=== PATIENT | female | born 2000 | race Caucasian/White ===

== ENCOUNTER 2020-10-04 21:39 | Inpatient (IN) | payer MEDICAID, SELFPAY ==
[2020-10-04 21:40] VITALS: BP 131/74; PULSE 91; RESP 16; TEMP 36.4; O2SAT 95; BMI 20.9
--- NOTE | 2020-10-04 22:08 | EDS_ITS ---
HPI History of Present Illness Chief Complaint: Substance Abuse Detail of Chief Complaint: Detox from fentanyl third visit Informant: patient Onset/Context/Timing Onset: Month(s) (Patient states she has been smoking fentanyl for 1 month) Context: Sudden Onset Timing: Continuous Quality: Illicit drug use Location: Not applicable Current Severity: Moderate Maximum Severity: Moderate Worsened by: Nothing Relieved by: Nothing Associated Symptoms Associated Symptoms: Positive for tremor, no and unknown; Negative for vomiting*, diarrhea*, fever*, rash*, seizure, palpatations, change in mental status, sex for drugs*, suicidal ideation, homicidal ideation and *HIV Risk Factors:Consider testing if last test > 6 months Prehospital Treatment: Naloxone, Glucose, Oxygen, BVM and CPR Narrative Narrative: Patient is a 20-year-old female whose last normal menstrual period was 2 to 3 weeks ago who presents for detox. She has a prior history of IV drug use. She denies history of SBE, heart murmur or being immune suppressed. She states she is hepatitis C positive. She states her HIV test was negative. She has been smoking and fentanyl for the past month. She is never been in detox program. She states she would like to stop using fentanyl. She denies fever, chills night sweats. Denies headache. She denies double vision, blurred vision loss of vision or change in vision. She denies trouble with speech or swallowing. She denies chest pain. Denies shortness of breath. She denies nausea, vomiting diarrhea. She denies myalgias or arthralgias. She has lesions on her extremities for numerous causes. She states she is not injecting. Prior similar symptoms: No Recent Illness/Hospitalization: No PFSH PFSH no medical history Home Medications NK 10/04/20 [History Last Taken Unknown] Allergy/AdvReac Type Severity Reaction Status Date / Time No Known Allergies Allergy Verified 10/04/20 21:42 other no surgical history Social History (Updated 10/04/20 @ 22:[address] Nickolas Mar MD) household members: significant other housing: apartment Smoking Status: Current every day smoker tobacco type: cigarettes alcohol intake: current alcohol intake frequency: other substance use type: opiates ROS ROS ED Constitutional Constitutional ED: Reports sweats; Denies chills, fever(s), subjective or weight loss Eyes Eyes: Denies blurry vision, change in vision or diplopia ENT ENT ED: Denies ear pain, rhinorrhea or sore throat Cardiovascular Cardiovascular: Denies chest pain, orthopnea, palpitations or racing heartbeat Respiratory/Chest Respiratory/Chest: Denies cough, dyspnea, dyspnea on exertion or orthopnea Gastrointestinal Gastrointestinal: Reports nausea; Denies abdominal pain, diarrhea or vomiting Genitourinary Genitourinary ED: Denies dysuria or urinary frequency Musculoskeletal Musculoskeletal: Denies arthralgias, back pain, myalgias or neck pain Integumentary Reports rash; Denies abscess or Abrasions Neurologic Neurologic: Denies headache(s) or weakness Psychiatric Psychiatric: Denies anxiety or depression Hematologic/Lymphatic Hematologic/Lymphatic: Denies easy bleeding or easy bruising EXAM Physical Exam Const Vital Signs: 10/04/20 21:40 Temperature 97.6 F L Temperature Source Temporal Pulse Rate 91 Respiratory Rate 16 Blood Pressure 131/74 H Blood Pressure Mean 93 Pulse Ox 95 Oxygen Delivery Method Room Air Positive well nourished and well developed General Appearance ED: well developed and NAD HEENT Reports TM's clear and moist mucous membranes HEENT Narrative: Head is normocephalic. Ears are normal. Nares patent. Posterior pharynx no erythema or exudate. atraumatic Tympanic Membrane ED: Yes TM's clear Eyes PERRL and EOMs intact bilaterally Eyes Narrative: There is no nystagmus. General Eye ED: Negative for pale conjunctiva or scleral icterus Neck no lymphadenopathy, supple and no JVD Lymph Lymphatic: no lymphadenopathy noted Chest Wall inspection of chest normal Resp normal respiratory effort and clear to auscultation bilaterally Cardio regular rate, regular rhythm, S1 normal heart sound, S2 normal heart sound and no murmurs GI soft to palpation, non-tender, non-distended and no masses Back/Spine no CVA tenderness Cervical Spine: Negative for cervical spine tenderness Thoracic Spine / Upper Back: Negative for thoracic spinal tenderness Lumbar Spine / Lower Back: Negative for lumbar spinal tenderness Extremity General Extremety ED: Negative for edema or tenderness General Extremity: Negative for edema Neuro oriented x3 and CN's II-XII intact bilaterally Neuro Narrative: There is no dysmetria. There is 3 beats of clonus at the ankles bilaterally Edie Coma Scale: document GCS findings Spontaneous Obeys Commands Oriented 15 Sensorium / Orientation: alert Speech: speech normal Gait (Neuro): normal gait Motor Exam: strength 5/5 throughout Psych mental status grossly normal and thought process normal Skin Skin Narrative: Patient has areas that are concerning for diamond picker syndrome. She denies. MDM MDM MDM Narrative Medical decision making narrative: Patient presents for opiate dependency and detox. She is never been in a detox program. ER addiction order set was initiated. Patient's case was discussed with hospitalist. She will be admitted to the hospital for detox. She understands she cannot smoke. Radiography Diagnostic Testing: Labs to be followed by hospitalist. Rhythm Strip Rhythm Strip: Sinus Rhythm Rate: 88 Ectopy: None Discharge Plan Triage Chief Complaint: Substance Abuse ED Provider: Nickolas Mar Dx/Rx/DC Orders Clinical Impression: Fentanyl use disorder, moderate, dependence Prescriptions: No Action NK RF: 0 Disposition Disposition: Acute Care Hospital [facility]
--- NOTE | 2020-10-04 22:42 | CM.ED ---
SW Note SW was advised by the hospitalist, Gloria Chi, that patient and her significant other are being admitted for fentanyl use. [facility] will be going [facility]. Patient and Thor Rashid have 1 month old chid who is currently being cared for by grandmother. She wanted manager social to be aware. Plan: Send daily report email Christen Rubi
--- NOTE | 2020-10-04 22:59 | ED.RN ---
PATIENT NAVIGATOR CONTACTED AND VERBALIZED THAT HERSELF OR ANOTHER STAFF MEMBER WILL BE IN TO SEE PT IN THE MORNING.
[2020-10-04 23:01] LABS: Absolute Lymphocyte Count 3.11 X10^3/uL (0.83-4.51); Absolute Neutrophil Count 5.2 X10^3/uL (2.0-7.7); Basophil# 0.04 X10^3/uL; Basophil% 0.4 % (0-1); Eosinophil# 0.33 X10^3/uL; Eosinophils% 3.6 % (0-5); Hematocrit 37.8 % (37-47); Hemoglobin 12.2 g/dL (12.0-15.0); Lymphocyte # 3.11 X10^3/ul (0.83-4.51); Lymphocyte % 33.5 % (19-41); Mean Corp Hgb Conc 32.3 g/dL (32-36); Mean Corpuscular Hgb 30.1 pg (27.0-32.0); Mean Corpuscular Volume 93.3 fL (81-99); Mean Platelet Vol. 9.6 fl (6.2-12.0); Monocyte# 0.62 X10^3/uL; Monocyte% 6.7 % (0-10); NRBC Flagged by Analyzer 0 % (0-5); Neutrophil # 5.15 X10^3/uL (2.7-7.7); Neutrophil % 55.6 % (47-70); Platelet Count 298 K/mm3 (150-450); RBC Distribution Width CV 15.8 % (11.6-14.6); RBC Distribution Width SD 54.7 fl (35.1-43.9); Red Blood Count 4.05 M/mm3 (4.2-5.4); White Blood Count 9.3 K/mm3 (4.4-11.0)
--- NOTE | 2020-10-04 23:07 | HP.PCM.HOS_ITS ---
HPI - General General Date of Admission: 10/04/20 Date of Service: 10/04/20 Chief Complaint: Acute Opiate Withdrawal HPI Narrative The patient is a 20 y/o F w/ PMHx: Tobacco use, recently diagnosed Hepatitis C ~ 1 month prior, Hx prior IVDA currently smoking Fentanyl, prior history of methamphetamine usage, recently delivered a baby girl ~ 1 month prior who presents to the [facility] ED on 10/04/20 w/ noted acute opiate withdrawal onset starti ng on day of ED presentation following last dose at ~ noon with abdominal cramping, generalized body aches, rhinorrhea, fatigue, restless leg, sweating. Patient interested in attaining clean status. She and her boyfriend presented in an attempt to become clean given the recent of their daughter. Their daughter is currently with the grandmother. The boyfriend was recently admitted to withdrawal treatment but she herself had not gone at that time and he started using again but was willing to come in tonight to start the process together. Work-up in the ED included T 97.6, heart rate 91, BP 131/74, respiratory rate 16, 95% on room air, CBC with WC 9.3, hemoglobin 12.2, platelet 298 without marked shift, CMP not marked appearing, urine testing negative, UDS negative, ethyl alcohol level less than 3. [facility] Medical History (Updated 10/05/20 @ 00:[address] Gloria Chi MD) Hepatitis C Substance abuse Tobacco abuse Home Medications NK 10/04/20 [History Last Taken Unknown] Allergy/AdvReac Type Severity Reaction Status Date / Time No Known Allergies Allergy Verified 10/04/20 21:42 no significant family history (Patient denies any marked maternal/paternal family history including HD, DM, CA.) no surgical history Social History (Updated 10/05/20 @ 00:[address] Gloria Chi MD) household members: significant other housing: apartment Smoking Status: Current every day smoker tobacco type: cigarettes Smoking packs per day: 0.5 Smoking cigarettes per day: 10.0 alcohol intake: current alcohol intake frequency: a few times a week substance use type: opiates and other details: Fentanyl, currently smoking. ROS ROS Narrative Admission Review of Systems: CONSTITUTIONAL: No weight loss, fever, chills, + weakness or fatigue. HEENT: Eyes: No visual loss, blurred vision, double vision or yellow sclerae. Ears, Nose, Throat: No hearing loss, sneezing, congestion, runny nose or sore throat. SKIN: No rash or itching, lesions, wounds. CARDIOVASCULAR: No chest pain, chest pressure or chest discomfort, palpitations, edema, orthopnea, syncopal events. RESPIRATORY: No shortness of breath, cough or sputum, wheezing, hemoptysis. GASTROINTESTINAL: + anorexia, nausea without vomiting, abdominal pain, No melena, BRBPR. GENITOURINARY: No dysuria, frequency, urgency or retention. NEUROLOGICAL: No headache, dizziness, syncope, paralysis, ataxia, numbness or tingling in the extremities, focal weakness, change in bowel or bladder control, seizure. MUSCULOSKELETAL: + muscle, back pain, joint pain or stiffness. HEMATOLOGIC: No anemia, bleeding or bruising. LYMPHATICS: No enlarged nodes. No history of splenectomy. PSYCHIATRIC: No history of depression or anxiety. ENDOCRINOLOGIC: + reports of sweating, cold or heat intolerance. No polyuria or polydipsia. ALLERGIES: No history of asthma, hives, eczema or rhinitis. Vital Signs Vital Signs Vital Signs: 10/04/20 21:40 Temperature 97.6 F L Temperature Source Temporal Pulse Rate 91 Respiratory Rate 16 Blood Pressure 131/74 H Blood Pressure Mean 93 Pulse Ox 95 Oxygen Delivery Method Room Air Weight Weight: 130 lb Body Mass Index (BMI) 20.9 Physical Exam Narrative Physical Examination: General: Awake, alert, oriented x 3 and cooperative, seated upright in the ED bed, restless, anxious. Skin: Normal color, normal turgor, no icterus, no cyanosis except picked regions . HEENT: AT/NC, EOMI, PERRLA, mildly dry MM, no carotid bruits or JVD noted. Lungs: Mildly diminished, greater bases, end expiratory wheezing occasionally, no acute evidence of any respiratory distress. Heart: Regular rate and rhythm; no gallop, rub audible. Abdomen: Soft, NTTP, ND, normal BS, no HSM. Extremities: No cyanosis, clubbing, or edema. Neurological: Patient awake, alert, oriented as noted, cognitive function intact; pupils equally reactive to light and accommodation, cranial nerves II- XII grossly normal, moving all 4 extremities, no focal deficits, strength preserved, extremely restless, moving frequently. Psychiatric: Affect appears restless, anxious, no acute evidence of depressive feelings. Results Lab / Micro Data Result Diagrams: 10/04/20 22:30 10/04/20 22:30 Labs: Laboratory Results - last 24 hr 10/04/20 22:30: WBC 9.3, RBC 4.05 L, Hgb 12.2, Hct 37.8, MCV 93.3, MCH 30.1, MCHC 32.3, RDW Std Deviation 54.7 H, RDW Coeff of Lindsay 15.8 H, Plt Count 298, MPV 9.6, Immature Gran % (Auto) 0.200, Neut % (Auto) 55.6, Lymph % (Auto) 33.5, Sac % (Auto) 6.7, Eos % (Auto) 3.6, Baso % (Auto) 0.4, Absolute Neuts (auto) 5.2, Absolute Lymphs (auto) 3.11, Nucleated RBC % 0 10/04/20 22:30: Ur Drug Screen Comment Rhythm Strip Rhythm Strip: Sinus Rhythm Rate: 88 Ectopy: None Assessment & Plan Assessment/Plan (1) Opiate withdrawal: PLAN: The patient is a 20 y/o F w/ PMHx: Tobacco use, recently diagnosed Hepatitis C ~ 1 month prior, Hx prior IVDA currently smoking Fentanyl, prior history of methamphetamine usage, recently delivered a baby girl ~ 1 month prior who presents to the [facility] ED on 10/04/20 w/ noted acute opiate withdrawal onset starting on day of ED presentation following last dose at ~ noon with abdominal cramping, generalized body aches, rhinorrhea, fatigue, restless leg, sweating. 1. Acute Opiate Withdrawal: Will admit to [facility], routine labs including CBC, CMP, urine for drug screen obtained in the ED, confirmed negative testing, will initiate and continue on protocol with tapering course of Subutex, as needed tylenol, ibuprofen, bowel regimen, gabapentin, Bentyl, Vistaril, methocarbamol, clonidine, PRN nightly trazodone for insomnia, IV fluids, IV antiemetics. We will consult case management for transition to next level of rehabilitation care. Discussed patient presentation with social work in the emergency room as well. 2. Polysubstance Abuse, IVDA Hx, History of Hepatitis C, Chronic: Patient currently not candidate for hep C treatment currently as needs to be clean, sober x 6 months, documented attendance NA or AA meetings, counseling and ongoing negative drug screens. Per discussion with patient will obtain HIV, hepatitis panel to assess for co-infection pending. 3. Recent spontaneous vaginal delivery: Patient with recent delivery of her geeta allie, 1-month-old, currently with the grandmother, discussed case and concerns with social work in the emergency room. 4. Tobacco Abuse: Encouraged cessation, inpatient consultation per RT, NR if desired. 5. DVT prophylaxis: Low risk, encourage ambulation. Charges/Coding Visit Charges Inpatient E&M: 47091 Init Hosp L2
[2020-10-04 23:12] LABS: Internal QC Validated? YES +Cl - CLEAR BKGD; Pregnancy, Serum, hCG Quali. NEGATIVE Negative
[2020-10-04 23:14] LABS: Alcohol, Blood (Medical)-Serum < 3.0 mg/dL
[2020-10-04 23:17] LABS: AST(SGOT) 13 U/L (15-37); Alanine Aminotransfer ALT/SGPT 17 U/L (13-56); Albumin, Serum 3.3 g/dL (3.2-5.0); Alkaline Phosphatase 60 U/L (45-117); Anion Gap 4 (5-15); BUN 10 mg/dL (7-18); BUN/Creat Ratio 11.5 RATIO (10-20); Calcium,Total 8.8 mg/dL (8.5-10.1); Chloride 109 mmol/L (98-107); Creatinine, Serum 0.87 mg/dL (0.55-1.02); EST Glomerular Filtration Rate 87 mL/min (>60); Est Glom Filt Rate - Afr Amer 106 mL/min (>60); Estimated Creatinine Clearance 95.22 ml/min; Globulin 3.3 g/dL (2.2-4.2); Glucose 82 mg/dL (74-106); Potassium 3.6 mmol/L (3.5-5.1); Protein, Total 6.6 g/dL (6.4-8.2); Sodium Level 141 mmol/L (136-145)
[2020-10-04 23:19] LABS: Amphetamine Urine VISTA NEGATIVE (<1000 ng/mL); Barbiturate Urine VISTA NEGATIVE (< 200 ng/mL); Benzodiazepine Urine VISTA NEGATIVE (< 200 ng/mL); Cocaine Urine VISTA NEGATIVE (< 300 ng/mL); Ecstacy Urine VISTA NEGATIVE (< 500 ng/mL); Methadone Urine VISTA NEGATIVE (< 300 ng/mL); PCP Urine VISTA NEGATIVE (< 25 ng/mL); THC Urine VISTA NEGATIVE (< 50 ng/mL); Vista UDS pH Range 5
[2020-10-04 23:48] VITALS: BMI 23.7
[2020-10-05] VITALS (8 sets, daily range): BP systolic 99–120; BP diastolic 49–73; PULSE 68–82; RESP 16–18; TEMP 36.2–37.2; O2SAT 95–99
[2020-10-05] MEDS: Buprenorphine HCl 2 MG TAB.SUBL SL ×3 (00:14→16:25)
[2020-10-05] MEDS: Lactated Ringers 1,000 ML 125 ML IV (00:15)
[2020-10-05] MEDS: Dicyclomine 10 MG Capsule 20 MG PO (00:27)
[2020-10-05] MEDS: 0.9% Saline Lock 10 ML Syringe IV (00:27)
[2020-10-05] MEDS: Gabapentin 300 MG Capsule PO (00:27)
[2020-10-05] MEDS: traZODone 100 MG Tablet PO (00:27)
[2020-10-05] MEDS: Methocarbamol 750 MG Tablet 1500 MG PO (00:27)
[2020-10-05 01:34] LABS: HIV - WCH Non-Reactive (Nonreactive)
--- NOTE | 2020-10-05 10:19 | PN.HOSP_ITS ---
Subjective Subjective Patient states she is having some mild loose stool, intermittent diaphoresis, body aches/chills, and nausea. She has no current issues or request at this time. Patient states that her use recently has been smoking opiates but she has injected in the past. Objective Data Objective Data Vital Signs: Vital Signs Temp Pulse Resp BP Pulse Ox 97.2 F L 70 18 99/49 L 96 10/05/20 07:55 10/05/20 07:55 10/05/20 07:55 10/05/20 07:55 10/05/20 08:10 Oxygen Delivery Method Room Air Weight: 66.7 kg Body Mass Index (BMI) 23.7 Intake & Output: Intake and Output for Last 24 Hours 10/03/20 10/04/20 10/05/20 23:59 23:59 23:59 Intake Total 1240 / 1240 Balance 1240 / 1240 Lab / Micro Data Result Diagrams: 10/04/20 22:30 10/04/20 22:30 Labs: Laboratory Results - last 24 hr 10/04/20 22:30: WBC 9.3, RBC 4.05 L, Hgb 12.2, Hct 37.8, MCV 93.3, MCH 30.1, MCHC 32.3, RDW Std Deviation 54.7 H, RDW Coeff of Lindsay 15.8 H, Plt Count 298, MPV 9.6, Immature Gran % (Auto) 0.200, Neut % (Auto) 55.6, Lymph % (Auto) 33.5, Randolph % (Auto) 6.7, Eos % (Auto) 3.6, Baso % (Auto) 0.4, Absolute Neuts (auto) 5.2, Absolute Lymphs (auto) 3.11, Nucleated RBC % 0 10/04/20 22:30: Sodium 141, Potassium 3.6, Chloride 109 H, Carbon Dioxide 28.0, Anion Gap 4 L, BUN 10, Creatinine 0.87, Estim Creat Clear Calc 95.22, Est GFR (MDRD) Af Amer 106, Est GFR (MDRD) Non-Af 87, BUN/Creatinine Ratio 11.5, Glucose 82, Calcium 8.8, Total Bilirubin 0.60, AST 13 L, ALT 17, Alkaline Phosphatase 60, Total Protein 6.6, Albumin 3.3, Globulin 3.3, Albumin/Globulin Ratio 1.0 10/04/20 22:30: Ethyl Alcohol < 3.0 10/04/20 22:30: Urine Opiates Screen NEGATIVE, Urine Methadone Screen NEGATIVE, Ur Barbiturates Screen NEGATIVE, Ur Phencyclidine Scrn NEGATIVE, Ur Amphetamines Screen NEGATIVE, U Methamphetamin-MDMA NEGATIVE, U Benzodiazepines Scrn NEGATIVE, Urine Cocaine Screen NEGATIVE, U Cannabinoids Screen NEGATIVE, Ur Drug Screen Comment 10/04/20 22:30: Serum , Qual NEGATIVE 10/04/20 22:30: HIV 1&2 Antibody Non-Reactive Micro: Microbiology 10/04/20 22:33 Nasal Secretion SARS-CoV-2 Antigen (Rapid) - Final Rhythm Strip Rhythm Strip: Sinus Rhythm Rate: 88 Ectopy: None Physical Exam Const alert, oriented x3 and no apparent distress Constitutional Narrative: Young white female lying in bed, slightly diaphoretic but no tremor and appears calm, nontoxic-appearing Exam Limitations: no limitations HEENT head/scalp atraumatic Head and Scalp: normocephalic Resp normal respiratory effort, no retractions, no use of accessory muscles and clear to auscultation bilaterally Auscultation: Negative for crackles, rales, rhonchi or wheezes Cardio regular rate, regular rhythm, S1 normal heart sound, S2 normal heart sound, no murmurs, no rub, no gallops, no clicks and no JVD GI normal to inspection, nondistended, normoactive bowel sounds, soft to palpation, non-tender and non-distended Extremity no clubbing, cyanosis or edema Peripheral Pulses: Yes pulses 2+ throughout Skin no rashes or lesions noted, no wounds, skin turgor normal, no jaundice, no petechiae and no mottling Neuro oriented x3 and moves all extremities Sensorium / Orientation: awake and alert Psych Psych Narrative: Affect is slightly flat but patient is appropriately interactive Assessment & Plan Assessment/Plan (1) Opiate withdrawal: (2) Fentanyl use disorder, moderate, dependence: PLAN: Acute opiate withdrawal -Continue buprenorphine taper -Continue supportive medications -180 to evaluate the patient today to put together treatment plan Polysubstance abuse -See above -Has history of IVDU -HIV was negative on admission -Patient was recently diagnosed with chronic hepatitis C -Patient has had periods of sobriety in the past Chronic hepatitis C -will need to remain clean for 6 months then may pursue treatment Recent spontaneous vaginal delivery -Baby is with patient's mother - is 1-month-old -Social work is consulted Tobacco abuse -Recommend cessation Nicotine patch if desired DVT prophylaxis -Early ambulation protocol -Patient is low risk CODE STATUS -Full code Charges/Coding Visit Charges Inpatient E&M: 28983 Subs Hosp L2
--- NOTE | 2020-10-05 11:03 | ADDICTION ---
TW met with pt to complete ASAM, AUDIT, DUDIT, MSE, and fill out JED. Pt was dismissive and unwilling to elaborate with TW. Pt was willing to sign JED for [facility] in [place] for Vivitrol appointment upon release. PT's first pre-MAT appt is set up for 10/08/2020 at 1PM in [place] [place], with the second appt for the administration of Vivitrol set up for 10/09/20 at 1:30PM in [facility]. Pt denies any further need for transportation. Pt will discharge to home with these f/u appointments.
--- NOTE | 2020-10-05 12:22 | CASEMGMT ---
SW met w/pt in room, as pt is self pay. SW provided resources to pt including a Medicaid application, a list of resources in [facility], prescription assistance programs, and the hospital financial assist form. Pt states that she has already applied for Medicaid. SW let pt know when she gets the bill from the hospital to call and give them the Medicaid information, to see if Medicaid can be billed for this hospitalization. Pt states understanding. No further needs identified at this time. TIEN Casanova
--- NOTE | 2020-10-05 14:30 | CASEMGMT ---
Social Work Note AMY reviewed chart. Pt with recent of daughter, 1 month old, currently at grandmother's house. SW in to speak with pt. SW introduced self and role at [facility]. Pt confirms that she gave about a month ago to a girl named Jane Rashid. Pt confirms that Jane is currently at pt's mom's house (Miracle Granda). Pt states her was not planned. Pt states she lives with her significant other, Thor (father of baby) and with Jane. Pt states she doesn't work but Thor works. Pt states her was normal and her daughter Jane has all basic needs met. Pt states she started using Fentanyl about a month ago, confirms around the time her baby was born. Pt states she never uses in front of Jane and neither does Thor. Pt states she uses Fentanyl about 1x a day and time of the day just depends. Pt states when she uses she will drop her baby off at her mother's house. Pt states she is never high around her daughter. Pt also states Thor never uses around Jane and he is never high around the baby either. Pt states her mother, Miracle, is good sober support. Pt states Miracle has her baby as pt is at [facility] for detox program. Pt states Jane is her second child but she doesn't have custody of her first child. Pt states she does have an active CPS case with [facility] and her caseworkers are Marisel Ziegler and Chuckie Denis. Pt gave this worker permission to call [facility] CPS and speak with Marisel or Chuckie to update them on pt's admission to [facility], the reason why pt is at [facility], and the discharge plan for pt. Pt signed Release of Information (JED) for [facility] CPS. JED placed on pt's chart. SW placed a call to [facility] CPS and spoke with Marisel. Marisel states pt had a safety plan from home and both her and Chuckie are aware pt is at [facility] for detox and aware of pt's discharge plan ([address] [place] [address] in [place]). Marisel states she is pt's peer business support specialist and and Chuckie are apart of the [facility] program where a CPS [employer] gets partnered with a peer support person. Marisel states she will update pt's layer out Chuckie. SW also called pt's CPS layer out Chuckie and she is also aware that pt is at [facility] for detox and of pt's discharge plan. Lianne Childress CRITICAL CARE UNIT NURSE, MANAGER PEST
--- NOTE | 2020-10-05 22:47 | CPS ---
patient requeted prn treatment due to sob.
[2020-10-06] MEDS: Buprenorphine HCl 2 MG TAB.SUBL SL ×3 (00:11→16:30)
--- NOTE | 2020-10-06 00:58 | NURSING ---
This RN reviewed CONTROL CABINET ASSEMBLER's charting, agree with findings.
[2020-10-06 07:20] VITALS: O2SAT 93
[2020-10-06 08:14] VITALS: BP 118/72; PULSE 87; RESP 18; TEMP 36.9; O2SAT 95
--- NOTE | 2020-10-06 11:01 | PN.HOSP_ITS ---
Subjective Subjective No issues overnight. Patient states she is feeling better today. She completes her last dose of Subutex early on the a.m. of 10/08/2020. She is scheduled for outpatient [facility] on Thursday at 11 AM. Objective Data Objective Data Vital Signs: Vital Signs Temp Pulse Resp BP Pulse Ox 98.4 F 87 18 118/72 95 10/06/20 08:14 10/06/20 08:14 10/06/20 08:14 10/06/20 08:14 10/06/20 08:14 Oxygen Delivery Method Room Air Weight: 66.7 kg Body Mass Index (BMI) 23.7 Intake & Output: Intake and Output for Last 24 Hours 10/04/20 10/05/20 10/06/20 23:59 23:59 23:59 Intake Total 1959 360 / 360 Balance 1959 360 / 360 Lab / Micro Data Result Diagrams: 10/04/20 22:30 10/04/20 22:30 Micro: Microbiology 10/04/20 22:33 Nasal Secretion SARS-CoV-2 Antigen (Rapid) - Final Rhythm Strip Rhythm Strip: Sinus Rhythm Rate: 88 Ectopy: None Physical Exam Const alert, oriented x3 and no apparent distress Constitutional Narrative: Young white female lying in bed, nursing at bedside, appears calm, nontoxic-appearing Exam Limitations: no limitations HEENT head/scalp atraumatic Head and Scalp: normocephalic Resp normal respiratory effort, no retractions, no use of accessory muscles and clear to auscultation bilaterally Auscultation: Negative for crackles, rales, rhonchi or wheezes Cardio regular rate, regular rhythm, S1 normal heart sound, S2 normal heart sound, no murmurs, no rub, no gallops, no clicks and no JVD GI normal to inspection, nondistended, normoactive bowel sounds, soft to palpation, non-tender and non-distended Extremity no clubbing, cyanosis or edema Neuro oriented x3 and moves all extremities Sensorium / Orientation: awake and alert Assessment & Plan Assessment/Plan (1) Opiate withdrawal: (2) Fentanyl use disorder, moderate, dependence: PLAN: Acute opiate withdrawal -Continue buprenorphine taper -Continue supportive medications -180 to evaluated and note reviewed from 10/05/2020--> plan is follow-up for first pre-MAT appointment on 10/08/2020 at 1 PM in [place] with a second appointment for the administration of her Vivitrol set up for 10/09/2020 at 1:30 PM in [facility] -We will plan on discharge Thursday a.m. Polysubstance abuse -See above -Has history of IVDU -HIV was negative on admission -Patient was recently diagnosed with chronic hepatitis C -Patient has had periods of sobriety in the past Chronic hepatitis C -will need to remain clean for 6 months then may pursue treatment Recent spontaneous vaginal delivery -Baby is with patient's mother - is 1-month-old -Social work is consulted Tobacco abuse -Recommend cessation Nicotine patch if desired DVT prophylaxis -Early ambulation protocol -Patient is low risk CODE STATUS -Full code Charges/Coding Visit Charges Inpatient E&M: 50987 Subs Hosp L2
[2020-10-06 13:55] VITALS: BP 118/81; PULSE 72; RESP 18; TEMP 37.1; O2SAT 97
[2020-10-06 18:00] VITALS: BP 116/73; PULSE 79; RESP 16; TEMP 37.1; O2SAT 96
[2020-10-06 22:35] VITALS: BP 118/73; PULSE 75; RESP 16; TEMP 37.2; O2SAT 97
[2020-10-07] MEDS: traZODone 100 MG Tablet PO (00:27)
[2020-10-07] MEDS: Buprenorphine HCl 2 MG TAB.SUBL SL (00:27)
[2020-10-07 03:35] VITALS: BP 98/62; PULSE 87; RESP 16; TEMP 36.9; O2SAT 97
--- NOTE | 2020-10-07 04:26 | PCS.PANDOC ---
PANDEMIC DOCUMENTATION INITIATED: Date: 09/24/2020 Time: 190
[2020-10-07 06:58] VITALS: O2SAT 95
--- NOTE | 2020-10-07 08:46 | PCM.DC.SUM ---
Providers Date of Admission: 10/04/20 Primary Care Physician: Helene Primary Care Phys Reason For Visit: ACUTE OPIOID WITHDRAWAL Diagnosis Discharge Diagnosis (1) Opiate withdrawal: Status: Acute Code(s): F11.23 - Opioid dependence with withdrawal (2) Fentanyl use disorder, moderate, dependence: Status: Acute Code(s): F11.20 - Opioid dependence, uncomplicated Medications at Discharge Home Medications NK 10/04/20 Hospital Course Operations None Procedures None Summary of Care Provided Minutes Spent on Discharge: 26 Hospital Course: Miss Yoo is a 20-year-old white female who presented to the emergency department at [facility] on 10/04/2020 with a chief complaint of acute opiate withdrawal. On presentation she was in acute opiate withdrawal. Her last opiate use was the day prior to presentation. On admission she was complaining of abdominal pain, generalized body aches, rhinorrhea, fatigue, restless legs, and sweating. She and her boyfriend presented an attempt to become sober so they can care for her there recently born baby girl. She had a spontaneous vaginal delivery a month prior to admission. She did note on admission that she was recently diagnosed with hepatitis C. She was admitted to the general medical floor and placed on a buprenorphine taper with supportive medications for symptoms. She was evaluated by 180 with regards to follow-up after discharge to maintain sobriety. They have arranged for her first pre-MAT appointment on 10/08/2020 at 1 PM in [place] and her second appointment for the administration of Vivitrol for 10/09/2020 at 1:30 PM in [facility]. Her symptoms had pretty much resolved on 10/07/2020. She was instructed to follow-up as noted above. She was discharged home in stable condition. Discharge diagnoses: Acute opiate withdrawal-resolved Polysubstance abuse Chronic hepatitis C Recent spontaneous vaginal delivery Tobacco abuse Physical Exam Const alert, oriented x3 and no apparent distress Constitutional Narrative: Young white female lying in bed, appears calm, nontoxic-appearing General Appearance: cooperative, comfortable, well kempt and well developed Orientation / Consciousness: awake Exam Limitations: no limitations HEENT normocephalic and head/scalp atraumatic Resp normal respiratory effort, no retractions, no use of accessory muscles and clear to auscultation bilaterally Auscultation: Negative for crackles, rales, rhonchi or wheezes Cardio regular rate, regular rhythm, S1 normal heart sound, S2 normal heart sound, no murmurs, no rub, no gallops, no clicks and no JVD GI normal to inspection, nondistended, normoactive bowel sounds, soft to palpation, non-tender and non-distended Extremity no clubbing, cyanosis or edema Skin no rashes or lesions noted, no wounds, skin turgor normal, no jaundice, no petechiae and no mottling Skin Narrative: No diaphoresis or piloerection Neuro oriented x3 and moves all extremities Neuro Narrative: No tremor Sensorium / Orientation: awake and alert Psych Psych Narrative: Affect is flat but eye contact is good Weight / BMI Weight Weight: 66.7 kg Body Mass Index (BMI) 23.7 ABG / Lab / Microbiology Data Result Diagrams: 10/04/20 22:30 10/04/20 22:30 Microbiology: Microbiology 10/04/20 22:33 Nasal Secretion SARS-CoV-2 Antigen (Rapid) - Final D/C Instructions Discharge Diet: No restrictions Discharge Activity: Return to Normal Activity Meaningful Use Info Meaningful Use Diagnoses (Choose all that apply): None applicable Discharge Plan Admission Admit Date/Time: 10/04/20 23:09 Primary Reason for Your Visit: Acute opiate withdrawal Attending Provider: Sheree Westbrook Primary Care Provider: Care Physician,No Primary Instructions Additional Instructions / Restrictions: 1. pre-MAT appointment on 10/08/2020 at 1 PM in [place] 2. administration of Vivitrol for 10/09/2020 at 1:30 PM in [place] Discharge Orders/Prescriptions Prescriptions: No Action NK RF: 0 Referrals / Follow Up: Care Physician,No Primary [Primary Care Provider] - Disposition Disposition (needs filled in before D/C Order can be placed): Home, Self Care Charges/Coding Visit Charges Inpatient E&M: 34655 Disch Hosp
--- NOTE | 2020-10-07 08:59 | DCINST_ITS ---
Discharge Instructions Diet Discharge Diet: No restrictions Follow Up Care Test Results: Test results from this visit will be discussed in further detail at your follow-up appointment, if applicable. Discharge Plan Admission Admit Date/Time: 10/04/20 23:09 Primary Reason for Your Visit: Acute opiate withdrawal Attending Provider: Sheree Westbrook Primary Care Provider: Care Physician,No Primary Instructions Additional Instructions / Restrictions: 1. pre-MAT appointment on 10/08/2020 at 1 PM in [place] 2. administration of Vivitrol for 10/09/2020 at 1:30 PM in [place] Discharge Orders/Prescriptions Prescriptions: No Action NK RF: 0 Referrals / Follow Up: Care Physician,No Primary [Primary Care Provider] - Disposition Disposition (needs filled in before D/C Order can be placed): Home, Self Care
[2020-10-07 11:12] VITALS: BP 103/66; PULSE 87; RESP 16; TEMP 37.1; O2SAT 96
== END 2020-10-07 11:23 | disposition home or self-care (01) | DRG 897 ==
LOC: ED 22:35 → MS3 10-05 02:01
PROVIDERS: Admitting Provider Family Medicine; Emergency Provider Emergency Medicine; Visit Provider Internal Medicine
DX: F11.23 Opioid dependence with withdrawal (principal); O99.325 Drug use complicating the puerperium; O98.43 Viral hepatitis complicating the puerperium; B18.2 Chronic viral hepatitis C; O99.335 Smoking (tobacco) complicating the puerperium; F17.210 Nicotine dependence, cigarettes, uncomplicated
CPT/HCPCS: 36415; 80053; 80307; 82077; 84703; 85025; 86703; 86704; 86705; 86706; 86707; 86803; 87340; 87350; 87426; 94640; 99281; 99406; J7120; A4216

== ENCOUNTER 2020-12-05 04:09 | Observation (INO) | payer MEDICAID, SELFPAY ==
[2020-12-05] VITALS (7 sets, daily range): BP systolic 100–140; BP diastolic 52–90; PULSE 53–80; RESP 14–18; TEMP 36.2–37.1; O2SAT 96–100; BMI 21.5; BMI 22.4
--- NOTE | 2020-12-05 04:35 | EX.ED.SAOD ---
HPI History of Present Illness Chief Complaint: Substance Abuse Informant: patient Narrative Narrative: Patient presents requesting detox from heroin. She uses about a quarter to half a gram a day. Use has been increasing. She smokes it. She states she has never injected heroin. No history of infections. When she does not use she gets muscle aches, anxiety, sweats nausea and vomiting. Her last use was about 12 hours ago. She has gone through detox a single time before this. She did this here in September. She remained clean for about a week afterwards. She never did make it to Vivitrol treatment. She has no other complaints. No chronic medical conditions No meds other than Depo-Provera that she got 1 month ago No known allergies No surgeries Drug use as above, lives with boyfriend [facility] Medical History Fentanyl use disorder, moderate, dependence Hepatitis C Substance abuse Tobacco abuse Home Medications NK 10/04/20 [History Last Taken Unknown] Allergy/AdvReac Type Severity Reaction Status Date / Time No Known Allergies Allergy Verified 12/05/20 04:12 Family History (Updated 12/05/20 @ 05:[address] Tyler Baker MD) Other Drug abuse Social History household members: significant other housing: apartment Smoking Status: Current every day smoker tobacco type: cigarettes alcohol intake: current alcohol intake frequency: a few times a week substance use type: opiates and other details: Fentanyl, currently smoking. ROS ROS ED Constitutional Constitutional ED: Reports sweats and other Details: He gets sweats when she does not use. ; Denies chills or fever(s) Eyes Eyes: Denies blurry vision ENT ENT ED: Reports rhinorrhea; Denies sore throat Cardiovascular Cardiovascular: Denies chest pain or palpitations Respiratory/Chest Respiratory/Chest: Denies cough or dyspnea Gastrointestinal Gastrointestinal: Denies nausea or vomiting Genitourinary Genitourinary ED: Reports other Details: Last menstrual period was just a little bit of spotting last week. Her last Depo shot was a little over a month ago. ; Denies dysuria or urinary frequency Musculoskeletal Musculoskeletal: Reports myalgias and other Details: Myalgias develop when she does not use. Integumentary Denies rash Neurologic Neurologic: Denies headache(s), paresthesias or weakness Psychiatric Psychiatric: Reports other Details: Denies history of psychiatric illness. ; Denies suicidal ideation or suicidal thoughts Endocrine Endocrinology: Denies polydipsia or polyuria Hematologic/Lymphatic Hematologic/Lymphatic: Denies easy bleeding or easy bruising EXAM Physical Exam Const Vital Signs: 12/05/20 04:10 Temperature 97.2 F L Temperature Source Temporal Pulse Rate 75 Respiratory Rate 18 Blood Pressure 140/90 H Blood Pressure Mean 106 Pulse Ox 96 Oxygen Delivery Method Room Air Positive well nourished and well developed General Appearance ED: well developed and NAD HEENT Reports moist mucous membranes Eyes General Eye ED: Negative for pale conjunctiva or scleral icterus Neck no JVD Resp normal respiratory effort and clear to auscultation bilaterally Auscultation: Negative for rales, rhonchi or wheezes Cardio regular rate, regular rhythm and no murmurs GI soft to palpation and non-tender Back/Spine no CVA tenderness Extremity General Extremety ED: Negative for edema General Extremity: Negative for edema Neuro oriented x3 Sensorium / Orientation: alert Psych mental status grossly normal Skin Rashes: no rashes MDM MDM MDM Narrative Medical decision making narrative: Patient has no history of injecting. She is not having fevers. Her blood work was normal the end of September. She is on Depo-Provera. I discussed case with the hospitalist. She will be admitted. Discharge Plan Dx/Rx/DC Orders Clinical Impression: Opioid use disorder, Desire for detoxification Disposition Disposition: Acute Care Hospital [facility] Discharge Date/Time: 12/05/20 05:20
--- NOTE | 2020-12-05 04:51 | HP.PCM.HOS_ITS ---
[facility] - General General Date of Admission: 12/05/20 Date of Service: 12/05/20 Chief Complaint: Desire for detoxification HPI Narrative KATRINA CLEVELAND, is a 20 F with a significant history of hepatitis C; tobacco abuse; previous IV methamphetamine use; and opiate abuse who presents to the emergency department for help with heroin detoxification. Patient uses half a gram of heroin per day. She smoked the heroin. Last time of use was a day before presentation. She reports withdrawal symptoms of leg cramps; tremors; and chills. Of note patient was at our Hospital for 10/04/2020 and was discharged on 10/07/2020. She was discharged home with plan to get Vivitrol. However patient did not start the Vivitrol program and relapsed one week after discharge. On her previous admission per discharge summary patient and her boyfriend wanted to be sober so that they could take care of their recently born baby. At this time patient's boyfriend reports that he is on Suboxone. [facility] Medical History (Updated 12/05/20 @ 05:[address] Tyler Baker MD) Fentanyl use disorder, moderate, dependence Hepatitis C Substance abuse Tobacco abuse Home Medications NK 10/04/20 [History Last Taken Unknown] Allergy/AdvReac Type Severity Reaction Status Date / Time No Known Allergies Allergy Verified 12/05/20 04:12 Family History (Updated 12/05/20 @ 05:[address] Tyler Baker MD) Other Drug abuse Surgical History no surgical history no surgical history Social History household members: significant other housing: apartment Smoking Status: Current every day smoker tobacco type: cigarettes alcohol intake: current alcohol intake frequency: a few times a week substance use type: opiates and other details: Fentanyl, currently smoking. ROS ROS Narrative Constitutional: Reports chills. Denies fever, fatigue, anorexia and change in weight Eyes: Denies blurry vision, change in eye color, change in vision, discharge from eye(s), double vision, erythema, eye pain, loss of vision or other HEENT: Denies abnormal hearing, dysphagia, ear pain, epistaxis, headache(s), hearing loss, nasal congestion, nasal discharge, post nasal drip, sinus pressure, sore throat or other Cardiovascular: Denies chest pain or palpitations. Denies dyspnea on exertion, orthopnea and paroxysmal nocturnal dyspnea Respiratory/Chest: Denies cough, excessive phlegm production, shortness of breath with exertion and wheezing Gastrointestinal: Denies abdominal pain, coffee ground emesis, constipation, tavares rrhea, dyspepsia, hematemesis, hematochezia, loose stools, melena, nausea, vomiting or other Genitourinary: Denies burning urination, difficulty urinating, dysuria, hematuria, nocturia, urinary frequency, urinary hesitancy, urinary incontinence, urinary urgency or other Musculoskeletal: Denies arthralgias, back pain, joint pain, joint stiffness, joint swelling, myalgias, neck pain or other Neurologic: Reports tremors. Denies abnormal gait, abnormal speech, confusion, disequilibrium, dizziness, focal weakness, headache(s), numbness, paresthesias, seizure-like activity, seizures, syncope, tingling, or other Psychiatric: Denies anxiety, depression, homicidal ideation, suicidal ideation or other Endocrinology: Denies change in body appearance, cold intolerance, excessive sweating, heat intolerance, polydipsia, polyuria or other Hematologic/Lymphatic: Denies anemia, easy bleeding, easy bruising, lymphadenopathy or other Integumentary: Denies rashes Allergic/Immunologic: Denies rhinitis, hives, eczema, asthma or other Vital Signs Vital Signs Vital Signs: 12/05/20 04:10 Temperature 97.2 F L Temperature Source Temporal Pulse Rate 75 Respiratory Rate 18 Blood Pressure 140/90 H Blood Pressure Mean 106 Pulse Ox 96 Oxygen Delivery Method Room Air Weight Weight: 60.6 kg Body Mass Index (BMI) 21.5 Physical Exam Narrative Physical exam: General: Well-nourished, well-developed. Head: Normocephalic, atraumatic, no tenderness Eyes: PERRLA, EOMI ENT, no trauma, moist mucous membranes, no rhinorrhea Neck: Nontender, full range of motion, no spinal tenderness, deformities, step- off CVS: Regular rate and rhythm. S1-S2 present. No murmur, gallop or rub. Respiratory : clear to auscultation bilaterally, chest wall nontender, no wheezing Abdomen: Soft, nontender, nondistended, normal bowel sounds, no masses : Deferred Back: Nontender, no CVA tenderness, no midline spinal tenderness, deformities, step-offs Extremities: Nontender full range of motion, no trauma Skin: Normal color, no trauma, abrasions Neuro: Alert, oriented, cranial nerves II through XII grossly intact. Psychiatry: Normal mood. Normal affect. Not depressed. Not anxious. Assessment & Plan Assessment/Plan (1) Desire for detoxification: (2) Opioid use disorder: (3) Tobacco abuse: PLAN: The patient is a 20 F with a significant history of hepatitis C; tobacco abuse; previous IV methamphetamine use; and opiate abuse who presents to the emergency department with desire for drug detoxification and with withdrawal symptoms. Opioid dependence and withdrawal Patient be started on Subutex and other adjunctive medications: Gabapentin as needed; dicyclomine as needed; Vistaril as needed; methocarbamol as needed; clonidine as needed; Imodium as needed; trazodone as needed and Zofran as needed. Monitor COWS and CINA score Tobacco abuse Counseled Scheduled nicotine patch prescribed. As needed nicotine gum DVT prophylaxis Low risk Encourage to ambulate Charges/Coding Visit Charges Inpatient E&M: 63522 Init Hosp L2
--- NOTE | 2020-12-05 06:21 | PCS.PANDOC ---
PANDEMIC DOCUMENTATION INITIATED: Date: 09/24/2020 Time: 190
[2020-12-05] MEDS: Methocarbamol 750 MG Tablet 1500 MG PO ×2 (10:10→18:27)
[2020-12-05] MEDS: Dicyclomine 10 MG Capsule 20 MG PO ×2 (10:10→18:27)
--- NOTE | 2020-12-05 10:19 | ADDICTION ---
This proposal writer met with PT to conduct ASAM, MSE, DUDIT assessments and to plan for d/c. PT A+Ox4 and participated actively. All assessments completed, faxed to [facility] and placed in PT's chart. PT plans to f/u with residential services at [facility]. PT requested this worker not begin the admission process because she wanted to go home and get things set up prior to going. PT did not indicate a need for transportation post d/c from [facility].
[2020-12-05] MEDS: Buprenorphine HCl 2 MG TAB.SUBL SL ×2 (10:34→18:27)
--- NOTE | 2020-12-05 11:52 | PN.HOSP_ITS ---
Subjective Subjective Follow-up on acute opioid withdrawal: Patient was seen and examined. Denied any new complaints. No acute events o vernight Objective Data Objective Data Vital Signs: Vital Signs Temp Pulse Resp BP Pulse Ox 97.2 F L 76 16 108/59 L 96 12/05/20 10:05 12/05/20 10:05 12/05/20 10:05 12/05/20 10:05 12/05/20 10:05 Oxygen Delivery Method Room Air Weight: 63.1 kg Body Mass Index (BMI) 22.4 Physical Exam Narrative Physical exam: General: Alert, Oriented x3, Cooperative, No apparent distress, Well developed HEENT: Atraumatic Oral: Moist Mucosa Neck: Supple Lungs: Clear to auscultation Cardiovascular: HS I+II, regular, no murmurs Abdomen: Bowel Sounds Present, Soft, Non Tender Extremities: No edema Assessment & Plan Assessment/Plan (1) Desire for detoxification: (2) Opioid use disorder: (3) Tobacco abuse: PLAN: 1. Acute opioid withdrawal, last Cina score is 6 Continue on Subutex withdrawal protocol 2. Nicotine dependence, counselled to quit, continue replacement Charges/Coding Visit Charges Inpatient E&M: 48283 Subs Hosp L2
--- NOTE | 2020-12-05 15:24 | CASEMGMT ---
Social Work Note AMY reviewed chart. Pt is RAMP pt. Was previously at [facility] in September for RAMP program and this worker saw pt at that time. In September, pt had an open CPS case through [facility] and had a safety plan and pt's caseworkers were Marisel Ziegler and Chuckie Denis. SW in to speak with pt. SW introduced self and role at [facility]. Pt confirms that she still has an open CPS case and caseworkers are Marisel Ziegler and Chuckie Denis. Pt states she didn't tell her caseworkers she was at [facility] for RAMP program. SW informed pt that if she signed Release of Information for [facility] then this worker can update them. Pt states No, I am sure my boyfriend Thor have updated them. SW informed pt that this worker could just call them and let them know she is at the hospital but not disclose that she is here for the RAMP program and pt still states no, again states her boyfriend Thor has probably told them. Pt states that her baby, Jane, is with her mom Miracle Granda and that she still has a safety plan with CPS as well. Pt states that part of the plan is she is not able to see her baby. SW asked if Miracle then has custody and pt states No, I still have custody, I just can't see her. SW informed pt that it may be beneficial for [facility] to update her caseworkers and pt again denied. SW asked pt if this worker could have permission to call her mom Miracle then just to confirm she has pt's baby. SW informed pt that this worker is a mandated strapper so this worker is just trying to make sure pt's baby is taken care of and somewhere safe. Pt signed Release of information (JED) for her mother Miracle Granda and wrote down number ([phone]). AMY placed a call to pt's mother Miracle Granda and left message asking for a return phone call. AMY received call from Miracle confirming that pt's baby Jane is with her. Miracle confirms that pt has a safety plan with [facility] and that she has guardianship for Jane. Miracle states that part of the safety plan is that pt and Thor are not to be allowed with Jane and they can visit Jane whenever as long as they are not under the influence. AMY asked Miracle how aften and when was the last time pt saw Jane. Miracle states pt saw the baby on the day she went to [facility] to try to get into detox. Jane states pt saw Jane for about 20 minutes before she went to [facility]. Miracle states it is hard to tell if pt is under the influence when she visits Jane anymore. Miracle states that part of the safety plan is pt is allowed to have supervised visits with Jane but only certain family members are approved for the visits. Miracle states she is approved, her boyfriend, and Thor's father are all approved to supervise the visits and if one of them are not available, then a CPS worker is available for supervising the meeting. Miracle states that pt's boyfriend Thor also uses and he's the one that got pt hooked on Heroin. Miracle states that they are originally from [place] and pt had a baby down in [place] that she lost custody of because of drug use. Miracle states that pt has to take drug tests and failed the test so bad the last time that CPS came into Miracle's home and drug tested her and the baby. Miracle states that she thinks Thor gave pt the ultimatum that she needs to get cleaned or he is going to lose his job and the apartment. Miracle states both pt and Thor are supposed to be in a Subaxone Program. Miracle states she is available if this worker has any other additional questions. AMY placed JED on pt's chart. SW to continue to follow. Lianne Childress PATTERN CHART WRITER, LINEN ROOM HOUSEPERSON
[2020-12-05] MEDS: traZODone 100 MG Tablet PO (20:15)
[2020-12-06] MEDS: Buprenorphine HCl 2 MG TAB.SUBL SL (01:57)
[2020-12-06 04:15] VITALS: BP 116/55; PULSE 65; RESP 16; TEMP 36.9; O2SAT 98
[2020-12-06 10:00] VITALS: BP 108/56; PULSE 71; RESP 16; TEMP 36.9; O2SAT 98
--- NOTE | 2020-12-06 11:47 | PCM.PN.HOSP ---
Documented by User: Dayne MCKINNEY 12/06/20 11:51 Subjective Subjective Patient is a 20-year-old female comfortably resting in bed, alert and oriented x3. Patient denies development of any new symptoms overnight and does not appear to be in acute distress. Objective Data Objective Data Vital Signs: Vital Signs Temp Pulse Resp BP Pulse Ox 98.4 F 71 16 108/56 L 98 12/06/20 10:00 12/06/20 10:00 12/06/20 10:00 12/06/20 10:00 12/06/20 10:00 Oxygen Delivery Method Room Air Weight: 139 lb 1.787 oz Body Mass Index (BMI) 22.4 Intake & Output: Intake and Output for Last 24 Hours 12/04/20 12/05/20 12/06/20 23:59 23:59 23:59 Intake Total 900 / 1200 300 / 300 Balance 900 / 1200 300 / 300 Physical Exam Const alert, oriented x3 and no apparent distress HEENT head/scalp atraumatic Head and Scalp: normocephalic Eyes PERRL, EOMs intact bilaterally and conjunctivae normal Neck no lymphadenopathy, supple and no JVD Resp normal respiratory effort, no retractions, no use of accessory muscles and clear to auscultation bilaterally Cardio regular rate, regular rhythm, no murmurs and no JVD GI normal to inspection, nondistended, normoactive bowel sounds, soft to palpation and non-tender Extremity normal to inspection, full ROM and no clubbing, cyanosis or edema Skin no rashes or lesions noted, no wounds, skin turgor normal and no jaundice Neuro CN's II-XII intact bilaterally Psych affect normal Assessment & Plan Assessment/Plan (1) Desire for detoxification: (2) Opioid use disorder: (3) Tobacco abuse: PLAN: 1) acute opioid withdrawal/desire for detoxification Patient left AGAINST MEDICAL ADVICE this morning before treatment could be complete. Subutex and as needed medications were discontinued. Patient seen by Dayne Hansen PA-C, under the supervision of Dr. Hansen. Documented by User: Dr. Tamie Hansen MD 12/06/20 15:20 Charges/Coding Addendum Addendum: This patient was seen in conjunction with FAYE Singer. I have independently interviewed and examined the patient and reviewed pertinent historical, laboratory, and other data. Please refer to FAYE Singer's note for his patient's presentation, findings, and recommendations. I have reviewed and his note and concur with his documentation Patient was seen and examined. She denied any new complaints. No acute events overnight. Physical Exam: Gen: Comfortable, not pale, not jaundiced CVS:HS I +II, regular, no murmurs RESP: CTA GI: BS present and normal, soft, nontender, no palpable organs EXT:No edema ASSESSMENT: 1. Acute opioid withdrawal 2. Nicotine dependence Plan: Continue on the buprenorphine withdrawal protocol We were later in the day informed that patient has chosen to sign out AGAINST MEDICAL ADVICE. Visit Charges Inpatient E&M: 61976 Subs Hosp L2
--- NOTE | 2020-12-06 12:19 | NURSING ---
Pt called this nurse and stated she wanted to leave AMA. Stated she has no withdrawal symptoms. Assessment negative for withdrawal symptoms. Had refused her AM medications. Was very calm and resolved. AMA papers presented and signed. Thanked me and calmly walked to elevator.
== END 2020-12-06 11:28 | disposition left against medical advice (07) ==
LOC: ED 04:49 → MS3 07:12
PROVIDERS: Admitting Provider Hospitalist; Emergency Provider Emergency Medicine; Visit Provider Internal Medicine
DX: F11.23 Opioid dependence with withdrawal (principal); Z86.19 Personal history of other infectious and parasitic diseases; F17.210 Nicotine dependence, cigarettes, uncomplicated
CPT/HCPCS: 99283; 99406; H0012